=== PATIENT | female | born 1995 | race Hispanic/Latino ===

== ENCOUNTER 2019-03-31 22:07 | Emergency (ER) | payer SELFPAY ==
[2019-03-31] MEDS ORDERED: NEOMYCIN/POLYMYXIN/HC OTIC SUSP 10ML BOTTLE ONE (22:32)
[2019-03-31] MEDS ORDERED: CLINDAMYCIN HCL 150 MG CAP ONE (22:38)
== END 2019-03-31 23:16 | disposition home or self-care (01) ==
LOC: EDH 22:07
DX: H60.92 Unspecified otitis externa, left ear (principal); Z98.890 Other specified postprocedural states